=== PATIENT | female | born 1965 | race Caucasian/White ===

== ENCOUNTER 2018-04-12 13:45 | Inpatient (IN) ==
[2018-04-12] MEDS ORDERED: Ondansetron 4 MG/2 ML VIAL IVP ONE (13:54)
[2018-04-12] MEDS ORDERED: 0.9 % Sodium Chloride 1,000 ML IVC ONE ×2 (13:54→16:52)
[2018-04-12 14:34] LABS: Basophils # 0.1 K/mcL (0.0-0.2); Basophils % 0.5 %; Eosinophils % 0.3 %; Hematocrit 54.5 % (35.3-44.9); Hemoglobin 17.7 g/dL (11.5-15.4); Immature Granulocytes % 0.3 % (0-4); Lymphocytes # 1.3 K/mcL (0.6-4.6); Lymphocytes % 11.4 %; Mean Corpuscular HGB Conc 32.5 g/dL (31.6-35.5); Mean Corpuscular Hemoglobin 28.3 pg (28.0-33.3); Mean Corpuscular Volume 87.2 fL (83.0-100.0); Mean Platelet Volume 11.6 fL (9.4-12.4); Monocytes # 0.7 K/mcL (0.0-1.3); Monocytes % 6.3 %; Neutrophils # 9.3 K/mcL (1.6-8.9); Nucleated Red Blood Cells 0.2 /100 WBC (0); Platelet Count 346 K/mcL (140-400); Red Blood Count 6.25 M/mcL (3.82-4.97); Segmented Neutrophils % 81.2 %
--- NOTE | 2018-04-12 14:55 | Emergency Department Note ---
Disposition Clinical Impression: Severe sepsis, Gastroenteritis, Dehydration, ANDIE (acute kidney injury), Elevated troponin Disposition: Admitted As Inpatient Condition: Fair Time of Disposition: 17:20 General Adult HPI - General Chief complaint: ED Nausea/Vomiting/Diarrhea Stated complaint: flu like symptoms Time Seen by Provider: 04/12/18 13:46 Source: patient, EMS Mode of arrival: EMS Limitations: no limitations Nursing Notes Reviewed: Yes Vital Signs Reviewed: Yes - History of Present Illness HPI Narrative: Patient is a 53-year-old female past medical history of arthritis, hypertension, hypothyroid, gastric bypass and tubal ligation presents to the emergency department for evaluation of nausea, vomiting, and diarrhea that has been going on for the past 3 days. Patient states that her symptoms started out as nausea and vomiting that is resolved today and she continues to have diarrhea today which started approximately 2 days ago. States she had some episodes was streak s of red blood in the diarrhea. States she has felt feverish. Patient was brought in by squad from home. Pain Scale: 5 - Related Data Home Medications Medication Instructions Recorded Confirmed RX: Cholecalciferol (D-3) [Vitamin 5,000 unit PO DAILY 10/31/16 04/12/18 D] RX: Gabapentin [Neurontin] 600 mg PO TID 10/31/16 04/12/18 RX: Levothyroxine Sodium [Levoxyl] 75 mcg PO DAILY 10/31/16 04/12/18 RX: Lisinopril [Zestril] 5 mg PO DAILY 10/31/16 04/12/18 Esomeprazole Magnesium [Nexium] 20 mg PO DAILY 04/12/18 04/13/18 Hydrocodone/Acetaminophen [[place] 1 each PO Q6H PRN 04/12/18 04/12/18 5-325 Tablet] RX: Hydroxychloroquine [Plaquenuil] 200 mg PO BID 04/12/18 04/13/18 Albuterol Sulfate [Albuterol 2 puff IH QID PRN 04/13/18 04/13/18 Inhaler] Butalbit/Acetamin/Caff/Codeine 2 each PO QID PRN 04/13/18 04/13/18 [Jgocok-Ktwv-Pquwkncduyw-Codein] Montelukast [Singulair] 10 mg PO HS 04/13/18 04/13/18 Multivit-Min/Iron/Folic Acid/K 1 each PO DAILY 04/13/18 04/13/18 [Adults Multivitamin Tablet] Norgestimate-Ethinyl Estradiol 1 each PO DAILY 04/13/18 04/13/18 [Tri-Sprintec Tablet] Potassium Chloride [K-Tab ER] 10 meq PO DAILY 04/13/18 04/13/18 metFORMIN [Glucophage] 500 mg PO BIDWM 04/13/18 04/13/18 predniSONE [PredniSONE] 40 mg PO DAILY 04/13/18 04/13/18 Allergies Allergy/AdvReac Type Severity Reaction Status Date / Time topiramate [From Topamax] Allergy Itching Verified 01/08/18 08:42 morphine AdvReac See Verified 06/18/17 11:06 Comments tramadol AdvReac Nausea Verified 06/18/17 11:06 All systems ED: reviewed and negative except as stated. Review of Systems: As Per HPI Constitutional: Reports: fever, chills Cardiovascular: Denies: chest pain, palpitations, dyspnea on exertion, edema, syncope, paroxysmal nocturnal dyspnea Respiratory: Denies: cough, dyspnea, wheezes Gastrointestinal: Reports: nausea, vomiting, diarrhea, hematochezia. Denies: abdominal pain, constipation, hematemesis, melena Genitourinary: Reports: frequency. Denies: urgency, dysuria, hematuria Musculoskeletal: Denies: back pain, neck pain Integumentary: Denies: rash Neurological: Denies: headache, weakness, numbness, paresthesias, confusion, abnormal gait, vertigo Past Medical History - Past Medical History Attestation: Yes The following information was validated with the patient. Medical history: Reports: arthritis, hypertension, thyroid disease Surgical history: Reports: cholecystectomy, other, bariatric surgery Psychiatric history: Reports: no psych history - Social History Smoking Status: Never smoker Smokeless Tobacco Status: No Alcohol use: Reports: rarely Drug use: Reports: none Physical Exam - General Limitations: no limitations General appearance: alert, in distress (Diaphoretic and tachycardic. ) - Head Head exam: atraumatic, normocephalic, normal inspection - Eye Eye exam: Present: normal appearance, PERRL, EOMI - ENT ENT exam: normal exam, mucous membranes dry - Neck Neck exam: Present: normal inspection, full ROM, trachea midline - Chest Chest inspection: Present: normal inspection, symmetric chest wall rise. Absent: tenderness - Respiratory Respiratory exam: Present: normal lung sounds bilaterally. Absent: respiratory distress, wheezes, stridor, accessory muscle use, prolonged expiratory phase - Cardiovascular Cardiovascular exam: Present: tachycardia, normal heart sounds, +S1, +S2 - Abdominal Exam Abdominal exam: Present: soft, Non-Tender, normal bowel sounds - Extremities Exam Extremities exam: Present: normal inspection, full ROM, normal capillary refill. Absent: tenderness, pedal edema - Back Exam Back exam: Present: normal inspection, full ROM. Absent: tenderness, CVA tenderness (R), CVA tenderness (L) - Neurological Exam Neurological exam: Present: alert, oriented X3 - Psychiatric Psychiatric exam: Present: normal affect, normal mood - Skin Skin exam: Present: warm, intact, normal color, diaphoresis Course Course Narrative: Patient presents for evaluation of nausea, vomiting and diarrhea with reports of some streaking of blood in her diarrhea this morning. She has have a history of gastric bypass. She denies any chest pain, shortness of breath or abdominal pain. States that she has been trying to manage her illness at home. Given pat parveen's symptoms at this time she is meeting sepsis criteria with possible source GI tract. She does mention urinary frequency so is concern for urosepsis. - Reevaluation(s) Reevaluation #1: Lactic elevated. 3000ml additional bolus ordered, patient already received 1L. No obvious source of infection at this time, consider gastroenteritis. Time: 14:54 Reevaluation #2: Patient continues to receive fluids. She will have a 4 hour repeat lactate drawn. She continues to perfuse well with a normal blood pressure. Her heart rate is improved to the 130s. Her troponin is elevated. We discussed potential causes of troponin elevation. EKG is nonischemic. Discussed considering a CTA of the chest to evaluate for PE however patient is not complaining of any respiratory or chest complaints and is no hypoxia. The patient was ordered vancomycin and Zosyn for broad coverage unknown source of infection at this time. She is also ordered a 4 L bolus. Time: 16:22 Reevaluation #3: Patient with placement of a central line without complications please refer to procedure note. Central line was placed due to difficulty obtaining peripheral IV access given the patient's small veins. Her blood pressure has been labile as a map greater than 65. Her heart rate has improved. She is on her fourth liter of fluids. Her repeat troponin has trended downwards to 0.2 and her lactic is not 2.0. Overall patient appears to be improving as far as her labs. Postprocedural x-ray showed no pneumothorax and appropriate placement of the central line. Time: 21:22 Vital Signs Temperature 97.6 F 04/12/18 13:48 Pulse Rate 146 04/12/18 13:48 Respiratory Rate 19 04/12/18 13:48 Blood Pressure 103/64 04/12/18 13:48 O2 Sat by Pulse Oximetry 100 04/12/18 13:48 Temperature 98.7 F 04/13/18 11:23 Pulse Rate 102 04/13/18 11:23 Respiratory Rate 18 04/13/18 11:23 Blood Pressure 111/49 04/13/18 11:23 O2 Sat by Pulse Oximetry 98 04/13/18 11:23 Oxygen Delivery Oxygen Delivery Room Air Procedures - Central Line Placement Right IJ Central Line Inserted*: Yes Central Line Catheter Replacement*: No Central Line Insertion: elective Consent Obtained: written consent Procedural Pause: verify patient name and date of , timeout performed per policy, mart and assess the site, assemble equipment and verify supplies, perform hand hygiene Patient Placed on Monitor/Pulse Ox: Yes During the Procedure: clinician is wearing sterile gloves, cap, mask,& gown during insertion, sterile field and sterile technique are maintained, patient's face is covered with drape or mask and wearing a cap, everyone in room is wearing a mask Central Line Prep: Chlorhexidine scrub, sterile drapes applied Prep the Procedure Site: apply chloraprep to the skin using a back and forth scrubbing motion, apply chloraprep for 30 seconds (upper body), 1-2 min (femoral sites), allow prep to dry, drape the patient with a full body drape Local Anesthetic: lidocaine 1% Amount of anesthesia used (mL): 3 Ultrasound Used for Placement: Yes Central Line Lumen Inserted: triple Post Procedure: sutured in place, good blood return, all ports aspirated, flushed, capped, sterile dressing applied, guide wire removed and visualized, dressing is dated Post Procedure X-Ray: tip of catheter in good position, no pneumothorax seen Patient Tolerated Procedure: well, no complications Complications: none Name of Clinician Inserting Central Line: Dr. Bateman under the supervision of Dr. Montiel Clinician Assisting/Completing Checklist: Dr. Montiel Date: 04/12/18 Time: 21:20 Medical Decision Making - Medical Records Medical records reviewed: Yes I reviewed the patient's medical records. - Lab Data Lab results reviewed: Yes I reviewed the patient's lab results. Result diagrams: 04/13/18 07:50 04/13/18 03:50 Lab Results 04/12/18 04/12/18 04/12/18 Range/Units 14:07 14:07 14:07 WBC 11.5 H (4.3-11.1) K/mcL RBC 6.25 H (3.82-4.97) M/mcL Hgb 17.7 H (11.5-15.4) g/dL Hct 54.5 H (35.3-44.9) % MCV 87.2 (83.0-100.0) fL MCH 28.3 (28.0-33.3) pg MCHC 32.5 (31.6-35.5) g/dL RDW 15.0 H (11.5-14.5) % Plt Count 346 (140-400) K/mcL MPV 11.6 (9.4-12.4) fL Immature Gran % 0.3 (0-4) % Seg Neutrophils % 81.2 % Lymphocytes % 11.4 % Monocytes % 6.3 % Eosinophils % 0.3 % Basophils % 0.5 % Neutrophils # 9.3 H (1.6-8.9) K/mcL Lymphocytes # 1.3 (0.6-4.6) K/mcL Monocytes # 0.7 (0.0-1.3) K/mcL Eosinophils # 0.0 (0.0-0.6) K/mcL Basophils # 0.1 (0.0-0.2) K/mcL Nucleated RBCs/100 WBC 0.2 H (0) /100 WBC Sodium 131 L (136-145) mEq/L Potassium 5.0 (3.5-5.1) mEq/L Chloride 97 L (98-107) mEq/L Carbon Dioxide 12 L (23-29) mEq/L BUN 28 H (6-20) mg/dL Creatinine 2.68 H (0.60-1.20) mg/dL Est GFR ( Amer) 23 L (> 60) Est GFR (Non-Af Amer) 19 L (> 60) BUN/Creatinine Ratio 10 (6-26) Glucose 189 H (70-105) mg/dL Calculated Osmolality 283 (280-300) Lactic Acid (0.5-2.2) mmol/L Calcium 8.1 L (8.6-10.3) mg/dL Phosphorus 6.2 H Cancelled (2.7-4.5) mg/dL Magnesium 1.5 L Cancelled (1.6-2.6) mg/dL Total Bilirubin 0.5 Cancelled (0.3-1.0) mg/dL Direct Bilirubin 0.1 Cancelled (0.0-0.2) mg/dL Indirect Bilirubin 0.4 Cancelled (0.0-1.2) mg/dL AST 24 Cancelled (13-39) Units/L ALT 21 Cancelled (7-52) Units/L Alkaline Phosphatase 38 Cancelled (34-104) Units/L Creatine Kinase (30-223) Units/L Troponin I 0.52 H* (< 0.04) ng/mL Serum Total Protein 6.5 Cancelled (6.4-8.9) g/dL Albumin 3.7 Cancelled (3.5-5.7) g/dL Globulin 2.8 Cancelled (2.4-3.5) g/dL Albumin/Globulin Ratio 1.3 Cancelled (1.1-2.2) Lipase 13 (11-82) Units/L Random Cortisol mcg/dl Urine Color (Yellow) Urine Clarity (Clear) Urine pH (5.0-8.0) pH Units Ur Specific [place] (1.010-1.025) Urine Protein (Neg-Trace) mg/dL Urine Glucose (UA) (Normal) mg/dL Urine Ketones (Negative) mg/dL Urine Blood (Negative) Urine Nitrite (Negative) Urine Bilirubin (Negative) Urine Urobilinogen (Normal) mg/dL Ur Leukocyte Esterase (Negative) Urine Microscopic RBC (0-3) per hpf Urine Microscopic WBC (0-3) per hpf Ur Squamous Epith Cells (None-Few) per lpf Amorphous Sediment (Few) Urine Bacteria (None-Few) per hpf Hyaline Casts (None-Few) per lpf Ur Culture Indicated? (NO) 04/12/18 04/12/18 04/12/18 Range/Units 14:07 15:10 16:55 WBC (4.3-11.1) K/mcL RBC (3.82-4.97) M/mcL Hgb (11.5-15.4) g/dL Hct (35.3-44.9) % MCV (83.0-100.0) fL MCH (28.0-33.3) pg MCHC (31.6-35.5) g/dL RDW (11.5-14.5) % Plt Count (140-400) K/mcL MPV (9.4-12.4) fL Immature Gran % (0-4) % Seg Neutrophils % % Lymphocytes % % Monocytes % % Eosinophils % % Basophils % % Neutrophils # (1.6-8.9) K/mcL Lymphocytes # (0.6-4.6) K/mcL Monocytes # (0.0-1.3) K/mcL Eosinophils # (0.0-0.6) K/mcL Basophils # (0.0-0.2) K/mcL Nucleated RBCs/100 WBC (0) /100 WBC Sodium (136-145) mEq/L Potassium (3.5-5.1) mEq/L Chloride (98-107) mEq/L Carbon Dioxide (23-29) mEq/L BUN (6-20) mg/dL Creatinine (0.60-1.20) mg/dL Est GFR ( Amer) (> 60) Est GFR (Non-Af Amer) (> 60) BUN/Creatinine Ratio (6-26) Glucose (70-105) mg/dL Calculated Osmolality (280-300) Lactic Acid 5.3 H* (0.5-2.2) mmol/L Calcium (8.6-10.3) mg/dL Phosphorus (2.7-4.5) mg/dL Magnesium (1.6-2.6) mg/dL Total Bilirubin (0.3-1.0) mg/dL Direct Bilirubin (0.0-0.2) mg/dL Indirect Bilirubin (0.0-1.2) mg/dL AST (13-39) Units/L ALT (7-52) Units/L Alkaline Phosphatase (34-104) Units/L Creatine Kinase 96 (30-223) Units/L Troponin I (< 0.04) ng/mL Serum Total Protein (6.4-8.9) g/dL Albumin (3.5-5.7) g/dL Globulin (2.4-3.5) g/dL Albumin/Globulin Ratio (1.1-2.2) Lipase (11-82) Units/L Random Cortisol 21.9 mcg/dl Urine Color Dark Yellow (Yellow) Urine Clarity Turbid A (Clear) Urine pH 5.0 (5.0-8.0) pH Units Ur Specific [place] 1.025 (1.010-1.025) Urine Protein 30 H (Neg-Trace) mg/dL Urine Glucose (UA) Normal (Normal) mg/dL Urine Ketones Trace H (Negative) mg/dL Urine Blood Negative (Negative) Urine Nitrite Negative (Negative) Urine Bilirubin Large H (Negative) Urine Urobilinogen Normal (Normal) mg/dL Ur Leukocyte Esterase Small H (Negative) Urine Microscopic RBC 3-5 H (0-3) per hpf Urine Microscopic WBC 3-5 H (0-3) per hpf Ur Squamous Epith Cells Many H (None-Few) per lpf Amorphous Sediment Many H (Few) Urine Bacteria None Seen (None-Few) per hpf Hyaline Casts Few (None-Few) per lpf Ur Culture Indicated? NO. A (NO) 04/12/18 04/12/18 Range/Units 19:54 19:54 WBC (4.3-11.1) K/mcL RBC (3.82-4.97) M/mcL Hgb (11.5-15.4) g/dL Hct (35.3-44.9) % MCV (83.0-100.0) fL MCH (28.0-33.3) pg MCHC (31.6-35.5) g/dL RDW (11.5-14.5) % Plt Count (140-400) K/mcL MPV (9.4-12.4) fL Immature Gran % (0-4) % Seg Neutrophils % % Lymphocytes % % Monocytes % % Eosinophils % % Basophils % % Neutrophils # (1.6-8.9) K/mcL Lymphocytes # (0.6-4.6) K/mcL Monocytes # (0.0-1.3) K/mcL Eosinophils # (0.0-0.6) K/mcL Basophils # (0.0-0.2) K/mcL Nucleated RBCs/100 WBC (0) /100 WBC Sodium (136-145) mEq/L Potassium (3.5-5.1) mEq/L Chloride (98-107) mEq/L Carbon Dioxide (23-29) mEq/L BUN (6-20) mg/dL Creatinine (0.60-1.20) mg/dL Est GFR ( Amer) (> 60) Est GFR (Non-Af Amer) (> 60) BUN/Creatinine Ratio (6-26) Glucose (70-105) mg/dL Calculated Osmolality (280-300) Lactic Acid 2.0 (0.5-2.2) mmol/L Calcium (8.6-10.3) mg/dL Phosphorus (2.7-4.5) mg/dL Magnesium (1.6-2.6) mg/dL Total Bilirubin (0.3-1.0) mg/dL Direct Bilirubin (0.0-0.2) mg/dL Indirect Bilirubin (0.0-1.2) mg/dL AST (13-39) Units/L ALT (7-52) Units/L Alkaline Phosphatase (34-104) Units/L Creatine Kinase (30-223) Units/L Troponin I 0.26 H* (< 0.04) ng/mL Serum Total Protein (6.4-8.9) g/dL Albumin (3.5-5.7) g/dL Globulin (2.4-3.5) g/dL Albumin/Globulin Ratio (1.1-2.2) Lipase (11-82) Units/L Random Cortisol mcg/dl Urine Color (Yellow) Urine Clarity (Clear) Urine pH (5.0-8.0) pH Units Ur Specific [place] (1.010-1.025) Urine Protein (Neg-Trace) mg/dL Urine Glucose (UA) (Normal) mg/dL Urine Ketones (Negative) mg/dL Urine Blood (Negative) Urine Nitrite (Negative) Urine Bilirubin (Negative) Urine Urobilinogen (Normal) mg/dL Ur Leukocyte Esterase (Negative) Urine Microscopic RBC (0-3) per hpf Urine Microscopic WBC (0-3) per hpf Ur Squamous Epith Cells (None-Few) per lpf Amorphous Sediment (Few) Urine Bacteria (None-Few) per hpf Hyaline Casts (None-Few) per lpf Ur Culture Indicated? (NO) - Radiology Data Radiology results reviewed: Yes I reviewed the patient's radiology results. Chest X-Ray 04/12/18 13:56 IMPRESSION: 1. No active pulmonary disease. D/ / Aurelio Walter MD / Aurelio Walter MD Interpreting Provider: Aurelio Walter MD - EKG Data EKG #1 EKG attestation: Yes I reviewed and interpreted this EKG. EKG results narrative: EKG done at 15:10 shows sinus tachycardia rate 134 bpm. Normal axis. Intervals within normal limits. No signs of ischemia. Attestation Statement - Attestation Attestation: Resident Attestation: I examined this patient and my medical decision making was reviewed with the Resident Physician. I agree with the documented findings, disposition and treatment plan as described except to the extent set forth below. We independently had [id number] contact with the patient. Patient presents to emergency department with complaints of abdominal pain, cony rrhea, nausea. Patient will undergo further evaluation with blood work as well as CT scan. patient looks markedly better than her vital signs. Conversational and pleasant despite heart rate in the 140s. Abdomen with mild generalized tenderness without rebound or guarding. patient's elevated lactic acid. Continue to give fluids. Blood cultures and empiric antibiotics will be started. No specific etiology on CT scan other than possible developing ileus versus small bowel obstruction. Central line was placed secondary to labile blood pressures systolically of 80 and 90. Central line was placed by Dr. Bateman. I was present throughout the entirety of the procedure. Sepsis Reassessment Note - Evaluation Current Stage of Sepsis: severe sepsis Possible Source of Sepsis: GI tract/intra-abdominal - Focused Exam Date of Encounter: 04/12/18 Time of Encounter: 19:30 Respiratory Exam: Present: CTA bilaterally Cardiovascular Exam: Present: tachycardia, S1, S2 Capillary Refill: < 2 seconds Peripheral Pulse Strength: 3+ normal Peripheral Pulse Location: Pedal Skin Exam: normal turgor
[2018-04-12 15:05] LABS: Calcium 8.1 mg/dL (8.6-10.3)
[2018-04-12] MEDS ORDERED: Aspirin 81 MG TAB.CHEW PO STA (15:20)
[2018-04-12] MEDS ORDERED: Isovue-370 500 ML BOTTLE IVP ONE (15:24)
[2018-04-12] MEDS ORDERED: Hydrocortisone Sodium Succ 100 MG/2 ML VIAL IVP ONE (15:25)
[2018-04-12] MEDS: 0.9 % Sodium Chloride 1,000 ML IVC SCH ×5 (15:30→22:36)
[2018-04-12 15:42] LABS: Albumin 3.7 g/dL (3.5-5.7); Albumin/Globulin Ratio 1.3 (1.1-2.2); Bilirubin,Direct 0.1 mg/dL (0.0-0.2); Bilirubin,Indirect 0.4 mg/dL (0.0-1.2); Bilirubin,Total 0.5 mg/dL (0.3-1.0); Globulin 2.8 g/dL (2.4-3.5); Magnesium 1.5 mg/dL (1.6-2.6); Phosphorous 6.2 mg/dL (2.7-4.5); Total Protein 6.5 g/dL (6.4-8.9)
[2018-04-12] MEDS ORDERED: Piperacillin/Tazobactam 3.375 GM in Water for inj. (sterile) 20 ML 20 ML IVP ONE (16:10)
[2018-04-12 17:06] LABS: Bilirubin,Urine Large (Negative); Blood,Urine Negative (Negative); Clarity,Urine Turbid (Clear); Color,Urine Dark Yellow (Yellow); Glucose,Urine (UA) Normal (Normal); Ketones,Urine Trace mg/dL (Negative); Leukocyte Esterase,Urine Small (Negative); Nitrite,Urine Negative (Negative); Protein,Urine 30 mg/dL (Neg-Trace); Specific Gravity,Urine 1.025 (1.010-1.025); Urobilinogen,Urine Normal (Normal)
[2018-04-12 17:08] LABS: Bacteria,Urine None Seen per hpf (None-Few); Squamous Epithelial Cell,Urine Many per lpf (None-Few)
--- NOTE | 2018-04-12 17:27 | Internal Med History&Physical ---
Addendum entered and electronically signed by Jose Stone DO 04/12/18 19:15: A/P Elevated trop - 0.53. Likely secondary to demand ischemia in setting of severe sepsis and hypovolemia. Patient denies chest pains or TORRES. EKG sinus without evidence of ischemic changes. Trend trops, repeat EKG in am. If continues to elevate, will workup cardiac causes with Echocardiogram. Original Note: <Jose Stone - Last Filed: 04/12/18 18:24> Date of Encounter: 04/12/18 Time of Encounter: 18:00 Internal Medicine - H&P: HPI Chief complaint: Nausea, vomiting and diarrhea Admitted From: Emergency Dept Plans for Post Hospital Care: Home History of present illness: Ms. Roberson is a 53 year old female with history of arthritis, hypertension, hypothyroidism, gastric bypass, dermatomyositis on 1 year taper of prednisone and Plaquenil who presents to the ED with 3 day history of nausea, vomiting and diarrhea. 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 She states that approximately 3 days ago she started developing nausea and vomiting, which was quickly followed by diarrhea which has been going on consistently since. She says the nausea and vomiting has stopped as of yesterday, however the diarrhea has yet to seize. This is not associated with any significant abdominal pain, however she has noted some subjective fevers, chills and sweats. Nothing like this is happening in the past. She does have exposure to illness, however she cannot think of anyone who has had similar illnesses in her recent exposures. She denies chest pains, shortness of breath, cough with sputum production. She also denies any urinary symptoms. She has had some streaks of blood in her stool but nothing significant. She does admit to feeling significantly weak generally, which she says has accumulated over the past couple of days. In the emergency department, the patient did have a set of labs which demonstrated a significant metabolic acidosis with high anion gap of 22, severe ANDIE with serum creatinine 2.68. She did have an elevated WBC at 11.5. Lactic acid was 5.3, troponin 0.52. She had no abdominal CT which demonstrated status post gastric bypass with mild dilatation of multiple proximal and mid small bowel loops though no definite transition point was identified. Chest x-ray was nonsignificant. The patient was significantly tachycardic with heart rate greater than 130, soft blood pressures. Due to the concern for severe sepsis, the patient did receive 3 L of saline and broad-spectrum antibiotics. She will be admitted to the hospitalist service for further workup and management. Past Med Surg Social Fam HX - Past Medical History Medical history: arthritis, hypertension, thyroid disease Additional medical history: hypothyroidism. chronic back pain Psychiatric history: no psych history - Past Surgical History Surgical History: cholecystectomy, other, bariatric surgery Additional surgical history: gastric bypass. tubal ligation. adenoidectomy - Social History Smoking Status: Never smoker Smokeless Tobacco Status: No Alcohol use: rarely Drug use: none Internal Medicine - H&P: Meds Cholecalciferol (D-3) [Vitamin D] 5,000 unit PO DAILY 10/31/16 [History] Gabapentin [Neurontin] 600 mg PO TID 10/31/16 [History] Levothyroxine Sodium [Levoxyl] 75 mcg PO DAILY 10/31/16 [History] Lisinopril [Zestril] 5 mg PO DAILY 10/31/16 [History] Esomeprazole Magnesium [Nexium] 20 mg PO DAILY 04/12/18 [History] Hydrocodone/Acetaminophen [[place] 5-325 Tablet] 1 each PO Q6H PRN 04/12/18 [History] Hydroxychloroquine [Plaquenuil] 200 mg PO BID 04/12/18 [History] Albuterol Sulfate [Albuterol Inhaler] 2 puff IH QID PRN 04/13/18 [History] Butalbit/Acetamin/Caff/Codeine [Kbcimt-Uczk-Zkonszkacof-Codein] 2 each PO QID PRN 04/13/18 [History] Montelukast [Singulair] 10 mg PO HS 04/13/18 [History] Multivit-Min/Iron/Folic Acid/K [Adults Multivitamin Tablet] 1 each PO DAILY 04/13/18 [History] Norgestimate-Ethinyl Estradiol [Tri-Sprintec Tablet] 1 each PO DAILY 04/13/18 [History] Potassium Chloride [K-Tab ER] 10 meq PO DAILY 04/13/18 [History] metFORMIN [Glucophage] 500 mg PO BIDWM 04/13/18 [History] predniSONE [PredniSONE] 40 mg PO DAILY 04/13/18 [History] Allergy/AdvReac Type Severity Reaction Status Date / Time topiramate [From Topamax] Allergy Itching Verified 01/08/18 08:42 morphine AdvReac See Verified 06/18/17 11:06 Comments tramadol AdvReac Nausea Verified 06/18/17 11:06 All Systems PM: A 10-system review of systems was performed and is negative for pertinent findings except as documented above in the HPI. Review of systems: Constitutional: Admits to subjective fevers, chills, generalized fatigue. Denies weight loss Head/Neck: Denies TSAI, neck stiffness EENT: Denies vision changes/blurriness, rhinorrhea, congestion, sore throat CVS: Denies chest pain, palpitations, TORRES, orthopnea, edema, PND Pulm: Denies SOB, cough, sputum, hemoptysis, wheezing GI: Denies abdominal pain, constipation, melena. Admits to nausea, nonbloody nonbilious vomiting, significant diarrhea with occasional streaks of hematochezia. : Denies dysuria, increased frequency, urgency, hematuria Heme: Denies ease of bleeding or bruising MSK: Denies joint pain, limited ROM. Denies significant muscle weakness or wasting above baseline Skin: Denies rashes, ulcers, color changes Neuro: Denies TSAI, paresthesias, focal deficits, ataxia - Constitutional Vitals: Temp Pulse Resp BP Pulse Ox 97.6 F 128 24 107/77 99 04/12/18 13:48 04/12/18 17:00 04/12/18 17:00 04/12/18 17:00 04/12/18 17:00 Exam: Gen: Vitals noted. No acute distress. Room has malodorous smell upon entry suspicious for infectious diarrhea Eyes: anicteric sclerae, moist conjunctivae; no lid-lag; Pupils equal and re active to light HENT: Atraumatic; oropharynx clear with moist mucous membranes and no mucosal ulcerations; normal hard and soft palate Neck: Trachea midline; supple, no thyromegaly or lymphadenopathy Cardiac: RRR however tachycardic, no murmur, +S1/S2 Pulmonary: CTA bilaterally, no wheezes, rales or rhonchi, equal chest expansion Abdomen: soft, minimally tender to palpation, no guarding. No masses or hepatosplenomegaly MSK: ROM intact, no joint swelling noted Extremities: no BLE edema, nontender calf, no cyanosis or clubbing Skin: Normal temperature, turgor and texture; no rash, ulcers or subcutaneous nodules Neuro: moves all extremities, no focal deficits. Psych: Appropriate mood and behavior. A&Ox3 Internal Med - H&P Results - Labs CBC & Chem 7: 04/12/18 14:07 04/12/18 14:07 Labs: Short CBC 04/12/18 Range/Units 14:07 WBC 11.5 H (4.3-11.1) K/mcL Hgb 17.7 H (11.5-15.4) g/dL Hct 54.5 H (35.3-44.9) % Plt Count 346 (140-400) K/mcL Neutrophils # 9.3 H (1.6-8.9) K/mcL BMP 04/12/18 14:07 Sodium 131 L Potassium 5.0 Chloride 97 L Carbon Dioxide 12 L BUN 28 H Creatinine 2.68 H Glucose 189 H Calcium 8.1 L Cardiac Enzymes 04/12/18 Range/Units 14:07 Troponin I 0.52 H* (< 0.04) ng/mL Liver Function 04/12/18 04/12/18 Range/Units 14:07 14:07 Total Bilirubin 0.5 Cancelled (0.3-1.0) mg/dL Direct Bilirubin 0.1 Cancelled (0.0-0.2) mg/dL AST 24 Cancelled (13-39) Units/L ALT 21 Cancelled (7-52) Units/L Alkaline Phosphatase 38 Cancelled (34-104) Units/L Albumin 3.7 Cancelled (3.5-5.7) g/dL Urine 04/12/18 Range/Units 16:55 Urine Color Dark Yellow (Yellow) Urine Clarity Turbid A (Clear) Urine pH 5.0 (5.0-8.0) pH Units Ur Specific [place] 1.025 (1.010-1.025) Urine Protein 30 H (Neg-Trace) mg/dL Urine Glucose (UA) Normal (Normal) mg/dL - Impressions ITS Impressions Chest X-Ray 04/12/18 13:56 IMPRESSION: 1. No active pulmonary disease. D/ / Aurelio Walter MD / Aurelio Walter MD Interpreting Provider: Aurelio Walter MD Abdomen/Pelvis CT 04/12/18 15:30 IMPRESSION: 1. Patient status post gastric bypass with mild dilatation of multiple proximal and mid small bowel loops, though no definite transition point is identified. These findings may suggest a mild small bowel ileus or possibly a developing small bowel obstruction. Clinical correlation is advised. There is no evidence of pneumatosis, perforation, or free air. 2. Patient status post cholecystectomy. D/ / 04/12/2018 16:42:27 Bro Alvarado MD / [facility] Interpreting Provider: Bro Alvarado MD - Assessment and plan (1) Severe sepsis Current Visit: Yes Status: Acute Assessment and plan: Severe sepsis secondary to likely infectious diarrhea SIRS include HR 146, RR 24, Suspected etiology infectious diarrhea Patient does present with evidence of lactic acidosis 5.3, evidence of end organ dysfunction (ANDIE and elevated Trop) CT Abd/Pelvis shows dilated loops of small bowel without obvious obstruction. CXR is negative. Received 3L NS in the ED with some drop in HR, Got Vancomycin and Zosyn IV. Blood cultures pending. UA Negative We will check GI Stool Culture Start IV Zosyn, PO Vanc Continue NS @125mL/hr Repeat lactic acid q4h until normal Repeat BMP @ 2400 (2) Infectious diarrhea in adult patient Current Visit: Yes Status: Acute Assessment and plan: Suspected infectious diarrhea, possibly C. 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 She does have a history of dermatomyositis and has been on long-term prednisone taper currently at 10 mg over the course of year She has had repetitive intractable diarrhea which has resulted in severe sepsis, severe volume depletion We will send for GI panel, start Zosyn and PO Vanc empirically De-escalate pending cultures Contact precautions (3) High anion gap metabolic acidosis Current Visit: Yes Status: Acute Assessment and plan: High anion gap metabolic acidosis, likely secondary to lactic acidosis in the setting of severe sepsis Patient presents with an anion gap of 22 and a lactic acid of 5.3 Suspect that this is primarily secondary to her current volume depletion and severe sepsis Additionally, there appears to be a non-anion gap metabolic acidosis component superimposed, likely secondary to diarrhea We will treat the patient aggressively with IV fluid resuscitation Trend BMPs every 4 hours (4) ANDIE (acute kidney injury) Current Visit: Yes Status: Acute Assessment and plan: Acute kidney injury in the setting of severe hypovolemia Serum creatinine 2.68, estimated GFR 19. Baseline greater than 60 This is likely prerenal due to diarrhea and severe hypovolemia, however there may be an ATN component in the setting of severe sepsis as well We will get a retroperitoneal ultrasound, urine studies. Strict I/Os. Renal Diet Continue IVF w/ NS @ 125mL/hr Check repeat BMP in a.m. Consider nephrology consult (5) Gastroenteritis Current Visit: Yes Status: Acute Assessment and plan: Suspected infectious GI Panel, as above (6) Dermatomyositis Current Visit: Yes Status: Chronic Assessment and plan: History of dermatomyositis, on plaquenil and prednisone Will continue plaquenil, give stress dose steroids No acute exacerbation (7) Hypomagnesemia Current Visit: Yes Status: Acute Assessment and plan: Replete with 2g IV Magnesium (8) Current chronic use of systemic steroids Current Visit: Yes Status: Acute Assessment and plan: Patient has been on long-term prednisone taper and is currently at 10 mg a day Given her severe sepsis, we will give her stress dose steroids 100 mg Solu-Cortef TID - Time Spent With Patient Total time spent is greater than 50% in coordination of care (as documented) at patient's floor/unit and/or counseling patient: <Judith Subramanian - Last Filed: 04/14/18 07:29> Date of Encounter: 04/14/18 Internal Medicine - H&P: HPI History of present illness: Ms. Roberson is a 53 year old female Past Med Surg Social Fam HX - Family History Father Living Status: Still Living Mother Living Status: Age at : 68 Cause of : Stroke Hx Family Cardiac Disorders: Yes (Heart attack age 56) Hx Family Cancer: Yes (Uterine) All Systems PM: A 10-system review of systems was performed and is negative for pertinent findings except as documented above in the HPI. - Constitutional Vitals: Temp Pulse Resp BP Pulse Ox 98.0 F 90 14 132/80 96 04/14/18 03:48 04/14/18 03:48 04/14/18 03:48 04/14/18 03:48 04/14/18 03:48 Internal Med - H&P Results - Labs CBC & Chem 7: 04/13/18 07:50 04/14/18 03:40 Labs: Short CBC 04/13/18 Range/Units 07:50 WBC 8.7 (4.3-11.1) K/mcL Hgb 11.6 D (11.5-15.4) g/dL Hct 35.4 (35.3-44.9) % Plt Count 254 (140-400) K/mcL Neutrophils # 7.6 (1.6-8.9) K/mcL BMP 04/14/18 03:40 Sodium 137 Potassium 3.3 L Chloride 110 H Carbon Dioxide 22 L BUN 5 L Creatinine 0.42 L Glucose 216 H Calcium 7.0 L - Impressions ITS Impressions Chest X-Ray 04/12/18 13:56 IMPRESSION: 1. No active pulmonary disease. D/ / Aurelio Walter MD / Aurelio Walter MD Interpreting Provider: Aurelio Walter MD Abdomen/Pelvis CT 04/12/18 15:30 IMPRESSION: 1. Patient status post gastric bypass with mild dilatation of multiple proximal and mid small bowel loops, though no definite transition point is identified. These findings may suggest a mild small bowel ileus or possibly a developing small bowel obstruction. Clinical correlation is advised. There is no evidence of pneumatosis, perforation, or free air. 2. Patient status post cholecystectomy. D/ / 04/12/2018 16:42:27 Bro Alvarado MD / [facility] Interpreting Provider: Bro Alvarado MD Chest X-Ray 04/12/18 21:07 IMPRESSION: No acute process. Right jugular central venous line in place terminating near the junction of the SVC and the right atrium D/ / Jose Albrecht MD / Jose Albrecht MD Interpreting Provider: Jose Albrecht MD - Assessment and plan (1) Severe sepsis Current Visit: Yes Status: Acute (2) Gastroenteritis Current Visit: Yes Status: Acute (3) ANDIE (acute kidney injury) Current Visit: Yes Status: Acute (4) Infectious diarrhea in adult patient Current Visit: Yes Status: Acute (5) Dermatomyositis Current Visit: Yes Status: Chronic (6) High anion gap metabolic acidosis Current Visit: Yes Status: Resolved (7) Hypomagnesemia Current Visit: Yes Status: Resolved (8) Current chronic use of systemic steroids Current Visit: Yes Status: Acute - Time Spent With Patient Total time spent is greater than 50% in coordination of care (as documented) at patient's floor/unit and/or counseling patient: - Attending Attestation I examined this patient and my medical decision-making was reviewed with the Resident Physician. I agree with the documented findings, disposition and treatment plan as described except to the extent set forth below.
[2018-04-12] MEDS ORDERED: Naloxone 0.4 MG/ML INJ IVP PRN (17:36)
[2018-04-12 18:05] LABS: Amorphous Sediment,Urine Many (Few); Hyaline Casts,Urine Few per lpf (None-Few)
[2018-04-12] MEDS ORDERED: Aminoglycoside Consult 1 EACH MC ONE (21:31)
[2018-04-12] MEDS: *HR* Heparin 5,000 UNIT/ML VIAL SQ SCH (22:49)
[2018-04-13] MEDS: Vancomycin Oral Soln 125 MG/2.5 ML UDC PO SCH ×2 (00:06→07:54)
[2018-04-13] MEDS: Hydrocortisone Sodium Succ 100 MG/2 ML VIAL IVP SCH ×2 (00:07→07:43)
[2018-04-13] MEDS: Piperacillin/Tazobactam 3.375 GM in 0.9 % Sodium Chloride Mini Bag 100 ML IVPB SCH ×4 (00:08→23:37)
[2018-04-13] MEDS ORDERED: Levalbuterol 1 PUFF INHALER IH PRN (00:58)
[2018-04-13] MEDS: Acetaminophen 325 MG TABLET PO PRN ×4 (01:33→20:19)
[2018-04-13 01:42] LABS: Calcium 6.1 mg/dL (8.6-10.3); Potassium 3.8 mEq/L (3.5-5.1)
[2018-04-13 01:43] LABS: Sodium, Urine 37.6 mEq/L
[2018-04-13 01:45] LABS: Protein/Creatinine Ratio,Urine 0.44 mg/mg (0.00-0.20)
[2018-04-13 02:19] LABS: Adenovirus F 40/41 PCR Not detected (Not detect); Astrovirus PCR Not detected (Not detect); C.difficile Toxin A/B Gene PCR Not detected (Not detect); Campylobacter by PCR Not detected (Not detect); Cryptosporidium by PCR Not detected (Not detect); Cyclospora cayetanensis PCR Not detected (Not detect); E. coli O157 by PCR Not detected (Not detect); Entamoeba histolytica PCR Not detected (Not detect); Enteroaggregative E.coli(EAEC) Not detected (Not detect); Enteropathogenic E.coli(EPEC) Not detected (Not detect); Enterotoxigenic E.coli (ETEC) Not detected (Not detect); Giardia lamblia PCR Not detected (Not detect); Norovirus GI/GII PCR DETECTED (Not detect); Plesiomonas shigelloides PCR Not detected (Not detect); Salmonella PCR Not detected (Not detect); Shig/EnteroinvasiveE coli EIEC Not detected (Not detect); Shigalike tox-prod E coli STEC Not detected (Not detect); Vibrio PCR Not detected (Not detect); Vibrio cholerae PCR Not detected (Not detect); Yersinia enterocolitica PCR Not detected (Not detect)
[2018-04-13 02:20] LABS: Rotavirus A PCR Not detected (Not detect); Sapovirus PCR Not detected (Not detect)
[2018-04-13 04:21] LABS: INR 1.1; Prothrombin Time 12.6 Seconds (9.4-12.1)
[2018-04-13 04:36] LABS: Alanine Aminotransferase 15 Units/L (7-52); Albumin 2.7 g/dL (3.5-5.7); Albumin/Globulin Ratio 1.3 (1.1-2.2); Alkaline Phosphatase 28 Units/L (34-104); Aspartate Amino Transferase 16 Units/L (13-39); BUN/Creatinine Ratio 19 (6-26); Bilirubin,Total 0.3 mg/dL (0.3-1.0); Blood Urea Nitrogen 19 mg/dL (6-20); Calcium 6.5 mg/dL (8.6-10.3); Carbon Dioxide 16 mEq/L (23-29); Chloride 111 mEq/L (98-107); Globulin 2.1 g/dL (2.4-3.5); Glucose 182 mg/dL (70-105); Magnesium 2.1 mg/dL (1.6-2.6); Osmolality,Calculated 287 (280-300); Phosphorous 2.6 mg/dL (2.7-4.5); Potassium 3.8 mEq/L (3.5-5.1); Sodium 135 mEq/L (136-145); Total Protein 4.8 g/dL (6.4-8.9); eGFR For Non-African Americans 60 (> 60)
[2018-04-13] MEDS: 0.9 % Sodium Chloride 1,000 ML IVC SCH (06:23)
[2018-04-13] MEDS: *HR* Heparin 5,000 UNIT/ML VIAL SQ SCH ×3 (06:23→22:10)
[2018-04-13] MEDS: Cholecalciferol (D-3) 1,000 UNIT TABLET PO SCH (07:43)
[2018-04-13 08:07] LABS: Basophils % 0.1 %; Hematocrit 35.4 % (35.3-44.9); Immature Granulocytes % 0.5 % (0-4); Lymphocytes # 0.6 K/mcL (0.6-4.6); Lymphocytes % 6.8 %; Mean Corpuscular HGB Conc 32.8 g/dL (31.6-35.5); Mean Corpuscular Hemoglobin 28.2 pg (28.0-33.3); Mean Corpuscular Volume 85.9 fL (83.0-100.0); Mean Platelet Volume 10.5 fL (9.4-12.4); Monocytes # 0.4 K/mcL (0.0-1.3); Monocytes % 4.4 %; Neutrophils # 7.6 K/mcL (1.6-8.9); Platelet Count 254 K/mcL (140-400); Red Blood Count 4.12 M/mcL (3.82-4.97); Red Cell Distribution Width 13.9 % (11.5-14.5); Segmented Neutrophils % 88.2 %
[2018-04-13 08:12] LABS: Hemoglobin 11.6 g/dL (11.5-15.4)
[2018-04-13 09:54] LABS: VBG Ionized Calcium 1.04 mmol/L (1.15-1.35)
--- NOTE | 2018-04-13 11:38 | Internal Med Progress Note ---
<JosefJaden Tracey - Last Filed: 04/13/18 18:07> Hospitalist Progress Note - Encounter Date of Encounter: 04/13/18 Time of Encounter: 09:35 - Subjective Interval History: Mrs. Roberson is a 53 year-old female with history of hypertension, hypothyroidism, gastric bypass, dermatomyositis on 1 year taper of prednisone and Plaquenil. She presented to the ED with nausea, vomiting, and diarrhea that began 3 days prior with some general weakness. She denied chest pain, SOB, cough, or urinary symptoms. 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 Labs on presentation indicated metabolic acidosis with high anion gap of 22, elevated WBC of 11.5, lactic acid 5.3, troponin 0.52. CXR was without significant findings. CT of the abdomen showed mild dilatation of multiple proximal and mid small bowel loops but no definite transition point, pneumatosis, perforation, free air. In the ED, she initially received 3L 0.9NS as well as Zosyn and IV Vancomycin given the concern for sepsis. Central line placed RIJ due to difficulty obtaining peripheral IV access from patient's small veins. On admission, aggressive IV hydration ~4L 0.9NS and broad spectrum antibiotics were continued. Followup labs improved with WBC 8.7, Lactic acid 0.8, troponin 0.16, BUN 19, Cr 0.98, AG of 8. GI Panel was positive for Norovirus. UA not significant for infection. Nasopharyngeal swab negative for flu. Blood cultures pending. Patient seen this am at bedside. She admits feeling markedly improved and denies any fever, chills, nausea, abdominal pain, or dysuria. The patient had one episode of diarrhea that was minimal in volume. She also endorses some mild myalgia which she attributes partially to her dermatomyositis. - Exam Vitals: Temp Pulse Resp BP Pulse Ox 98.7 F 102 18 111/49 98 04/13/18 11:23 04/13/18 11:23 04/13/18 11:23 04/13/18 11:23 04/13/18 11:23 Exam: Gen: Vitals noted. No acute distress. Eyes: anicteric sclerae, moist conjunctivae; no lid-lag; Pupils equal and reactive to light HENT: Atraumatic; oropharynx clear with moist mucous membranes and no mucosal ulcerations; normal hard and soft palate Neck: Trachea midline; supple, no thyromegaly or lymphadenopathy Cardiac: RRR, no murmur, +S1/S2 Pulmonary: CTA bilaterally, no wheezes, rales or rhonchi, equal chest expansion Abdomen: soft, no tenderness palpation, no guarding. No masses or hepatosplenomegaly MSK: ROM intact, no joint swelling noted Extremities: no BLE edema, nontender calf, no cyanosis or clubbing Skin: Normal temperature, turgor and texture; no rash, ulcers or subcutaneous nodules Neuro: moves all extremities, no focal deficits. Psych: Appropriate mood and behavior. A&Ox3 - Assessment and Plan (1) Severe sepsis Current Visit: Yes Status: Acute Assessment and Plan: Severe sepsis secondary to Noroviral gastroenteritis, possible unidentified superimposed secondary bacterial infection. Patient afebrile and much improved from prior day, HR, RR in normal range with systolic BP stabilizing >100. Labs improving with Lactic acid 0.8, troponin 0.16, Cr 0.98. Consider continuing Zosyn until blood cultures have resulted given initial sepsis but only norovirus identified. Will maintain central line in case additional blood draws or fluid resuscitation required. -Continue IV Zosyn pending blood cultures, discontinue PO vancomycin -Aggressive PO hydration -Monitor CBC, CMP for further response to PO intake and return to baseline (2) Infectious diarrhea in adult patient Current Visit: Yes Status: Acute Assessment and Plan: GI Panel positive for Norovirus. Patient works at correctional facility, admits possible sick contact, and relatively immunosuppressed given chronic prednisone. She endorses improvement with diarrhea as only single episode with minimal volume, no other abdominal pain. -Plan as above Sepsis (3) High anion gap metabolic acidosis Current Visit: Yes Status: Resolved Assessment and Plan: Gap closed with AG of 8, lactic acid of 0.8, bicarb 16, Cl 111. Consider hyperchloremic normal AG metabolic acidosis given her prior diarrhea. -Plan as above (4) Current chronic use of systemic steroids Current Visit: Yes Status: Acute Assessment and Plan: Patient on senior care prednisone taper 10 mg daily to treat dermatomyositis -Continue Solu-Cortef 100mg IV q8H; consider taper to allow transition to PO (5) ANDIE (acute kidney injury) Current Visit: Yes Status: Acute Assessment and Plan: ANDIE likely related to severe hypovolemia secondary to Noroviral gastroenteritis. Labs improving with Cr 0.98, BUN 19, eGFR 60. Given improving renal function and clinical picture will cancel Retroperitoneal U/S -Discontinue IVF -Aggressive PO fluid intake -Check CMP in am for further response to PO fluids (6) Gastroenteritis Current Visit: Yes Status: Acute Assessment and Plan: GI Panel positive for norovirus. Supportive care. -Adequate PO hydration (7) Dermatomyositis Current Visit: Yes Status: Chronic Assessment and Plan: Mild myalgia but no acute exacerbation. History of dermatomyositis, currently treated with 1 year taper of prednisone and plaquenil -Continue plaquenil -Stress dose steroids as above in Chronic Steroids (8) Hypomagnesemia Current Visit: Yes Status: Resolved Assessment and Plan: Followup Mg of 2.6 -Resolved post 2g IV Mg DVT Prophylaxis: Heparin 5k Units SQ q8H - Time Spent with Patient Total time spent is greater than 50% in coordination of care (as documented) at patient's floor/unit and/or counseling patient: Internal Medicine: Result - Labs CBC & Chem 7: 04/13/18 07:50 04/13/18 03:50 Labs: Short CBC 04/12/18 04/13/18 Range/Units 14:07 07:50 WBC 11.5 H 8.7 (4.3-11.1) K/mcL Hgb 17.7 H 11.6 D (11.5-15.4) g/dL Hct 54.5 H 35.4 (35.3-44.9) % Plt Count 346 254 (140-400) K/mcL Neutrophils # 9.3 H 7.6 (1.6-8.9) K/mcL BMP 04/12/18 04/13/18 04/13/18 14:07 00:20 03:50 Sodium 131 L 131 L 135 L Potassium 5.0 3.8 3.8 Chloride 97 L 114 H 111 H Carbon Dioxide 12 L 14 L 16 L BUN 28 H 24 H 19 Creatinine 2.68 H 1.29 H 0.98 Glucose 189 H 157 H 182 H Calcium 8.1 L 6.1 L 6.5 L Cardiac Enzymes 04/12/18 04/12/18 04/13/18 Range/Units 14:07 19:54 02:10 Troponin I 0.52 H* 0.26 H* 0.16 H* (< 0.04) ng/mL Liver Function 04/12/18 04/12/18 04/13/18 Range/Units 14:07 14:07 03:50 Total Bilirubin 0.5 Cancelled 0.3 (0.3-1.0) mg/dL Direct Bilirubin 0.1 Cancelled (0.0-0.2) mg/dL AST 24 Cancelled 16 (13-39) Units/L ALT 21 Cancelled 15 (7-52) Units/L Alkaline Phosphatase 38 Cancelled 28 L (34-104) Units/L Albumin 3.7 Cancelled 2.7 L (3.5-5.7) g/dL Urine 04/12/18 Range/Units 16:55 Urine Color Dark Yellow (Yellow) Urine Clarity Turbid A (Clear) Urine pH 5.0 (5.0-8.0) pH Units Ur Specific [place] 1.025 (1.010-1.025) Urine Protein 30 H (Neg-Trace) mg/dL Urine Glucose (UA) Normal (Normal) mg/dL - ABG Interpretation ABG results: PT/INR, D-dimer PT 12.6 Seconds (9.4-12.1) H 04/13/18 03:50 - Impressions Impressions Chest X-Ray 04/12/18 13:56 IMPRESSION: 1. No active pulmonary disease. D/ / Aurelio Walter MD / Aurelio Walter MD Interpreting Provider: Aurelio Walter MD Abdomen/Pelvis CT 04/12/18 15:30 IMPRESSION: 1. Patient status post gastric bypass with mild dilatation of multiple proximal and mid small bowel loops, though no definite transition point is identified. These findings may suggest a mild small bowel ileus or possibly a developing small bowel obstruction. Clinical correlation is advised. There is no evidence of pneumatosis, perforation, or free air. 2. Patient status post cholecystectomy. D/ / 04/12/2018 16:42:27 Bro Alvarado MD / [email or web address] Interpreting Provider: Bro Alvarado MD Chest X-Ray 04/12/18 21:07 IMPRESSION: No acute process. Right jugular central venous line in place terminating near the junction of the SVC and the right atrium D/ / Jose Albrecht MD / Jose Albrecht MD Interpreting Provider: Jose Albrecht MD Consult Discharge Plan - Plan Referrals: Kody Harris CNP [Primary Care Provider] - (Sent fax request to office on 04-13-18 @ [phone]) <Judith Subramanian - Last Filed: 04/14/18 07:36> Hospitalist Progress Note - Encounter Date of Encounter: 04/14/18 - Exam Vitals: Temp Pulse Resp BP Pulse Ox 98.0 F 90 14 132/80 96 04/14/18 03:48 04/14/18 03:48 04/14/18 03:48 04/14/18 03:48 04/14/18 03:48 - Assessment and Plan (1) Severe sepsis Current Visit: Yes Status: Acute (2) Gastroenteritis Current Visit: Yes Status: Acute (3) ANDIE (acute kidney injury) Current Visit: Yes Status: Acute (4) Infectious diarrhea in adult patient Current Visit: Yes Status: Acute (5) Dermatomyositis Current Visit: Yes Status: Chronic (6) High anion gap metabolic acidosis Current Visit: Yes Status: Resolved (7) Hypomagnesemia Current Visit: Yes Status: Resolved (8) Current chronic use of systemic steroids Current Visit: Yes Status: Acute - Time Spent with Patient Total time spent is greater than 50% in coordination of care (as documented) at patient's floor/unit and/or counseling patient: Internal Medicine: Result - Labs CBC & Chem 7: 04/13/18 07:50 04/14/18 03:40 Labs: Short CBC 04/13/18 Range/Units 07:50 WBC 8.7 (4.3-11.1) K/mcL Hgb 11.6 D (11.5-15.4) g/dL Hct 35.4 (35.3-44.9) % Plt Count 254 (140-400) K/mcL Neutrophils # 7.6 (1.6-8.9) K/mcL BMP 04/14/18 03:40 Sodium 137 Potassium 3.3 L Chloride 110 H Carbon Dioxide 22 L BUN 5 L Creatinine 0.42 L Glucose 216 H Calcium 7.0 L - ABG Interpretation ABG results: PT/INR, D-dimer PT 12.6 Seconds (9.4-12.1) H 04/13/18 03:50 - Impressions Impressions Abdomen/Pelvis CT 04/12/18 15:30 IMPRESSION: 1. Patient status post gastric bypass with mild dilatation of multiple proximal and mid small bowel loops, though no definite transition point is identified. These findings may suggest a mild small bowel ileus or possibly a developing small bowel obstruction. Clinical correlation is advised. There is no evidence of pneumatosis, perforation, or free air. 2. Patient status post cholecystectomy. D/ / 04/12/2018 16:42:27 Bro Alvarado MD / alfred Interpreting Provider: Bro Alvarado MD - Attending Attestation I examined this patient and my medical decision-making was reviewed with the Resident Physician and Medical Student. I agree with the documented findings, disposition and treatment plan as described except to the extent set forth below. Patient feels much better than yesterday. Objectively she appears in less distress, skin is warm and dry today, abdomen is soft, and non-tender. Labs show troponin trending down and renal function now within normal limits. VS: reviewed, Labs: reviewed as noted. A/P: severe sepsis - suspected source is GI as her primary complaints is n/v/d. She is + norovirus on stool panel, possibly the primary source of infection, cannot completely exclude bacterial causes. Should continue Zosyn until blood cultures negative for at least 48 hours.
[2018-04-13] MEDS ORDERED: Hydrocortisone Sodium Succ 100 MG/2 ML VIAL IVP SCH (20:00)
[2018-04-14] MEDS: Acetaminophen 325 MG TABLET PO PRN ×3 (01:15→12:36)
[2018-04-14 03:59] LABS: VBG Ionized Calcium 1.05 mmol/L (1.15-1.35)
[2018-04-14 04:27] LABS: BUN/Creatinine Ratio 12 (6-26); Blood Urea Nitrogen 5 mg/dL (6-20); Carbon Dioxide 22 mEq/L (23-29); Chloride 110 mEq/L (98-107); Glucose 216 mg/dL (70-105); Magnesium 2.2 mg/dL (1.6-2.6); Osmolality,Calculated 288 (280-300); Phosphorous 1.5 mg/dL (2.7-4.5); Potassium 3.3 mEq/L (3.5-5.1); Sodium 137 mEq/L (136-145); eGFR For Non-African Americans > 60 (> 60)
[2018-04-14] MEDS: *HR* Heparin 5,000 UNIT/ML VIAL SQ SCH (06:07)
[2018-04-14] MEDS ORDERED: Calcium Gluconate 2,000 MG in 0.9 % Sodium Chloride 100 ML IVPB ONE (08:34)
--- NOTE | 2018-04-14 08:38 | Discharge Summary ---
<Madison Bull N - Last Filed: 04/14/18 22:51> - NOTES TO OUTPATIENT PROVIDER Notes to Outpatient Provider: Mrs. Roberson was admitted on 04/12/18 for sepsis and hypovolemia secondary to an infectious diarrhea positive for Norovirus. EKG, CXR, and CTA Abdomen were without acute findings and UA was negative for in fection. Labs indicated ANDIE likely related to the hypovolemia and sepsis. She was treated with broad-spectrum antibiotics and vigorous IV hydration. The patient had a rapid recovery with treatment as vitals stabilized and the ANDIE resolved. Recommend continuation of 40 mg prednisone ith taper down to her usual daily dose of 10 mg over approximately 2 weeks, then continue 10mg daily dosefor dermatomyositis therapy until follow-up with rheumatology for any changes in maintenance dosing. Orders not resulted at time of discharge: Pending orders 04/12/18 15:10 Culture,Blood [BC] Stat 04/14/18 08:31 CBC [Complete Blood Count] [HEME] Stat Date of Encounter: 04/14/18 Time of Encounter: 08:38 - Discharge Diagnosis (1) Severe sepsis Priority: Primary Status: Acute (2) Gastroenteritis Priority: Secondary Status: Acute (3) ANDIE (acute kidney injury) Priority: Secondary Status: Acute (4) Infectious diarrhea in adult patient Priority: Secondary Status: Acute (5) Dermatomyositis Priority: Secondary Status: Chronic (6) High anion gap metabolic acidosis Priority: Secondary Status: Resolved (7) Hypomagnesemia Priority: Secondary Status: Resolved (8) Current chronic use of systemic steroids Priority: Secondary Status: Acute Hospital course: Ms. Roberson is a 53 year old female with a PMHx of HTN, hypothyroidism, post-deysi delta bypass, and dermatomyositis on 1 year taper of prednisone and Plaquenil. She presented to the ED on 04/12/18 with nausea, vomiting, and diarrhea that began 3 days prior with some general weakness. She denied chest pain, SOB, cough, or urinary symptoms. 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 Labs on presentation indicated metabolic acidosis with high anion gap of 22, elevated WBC of 11.5, lactic acid 5.3, troponin 0.52. EKG revealed sinus rhythm with no evidence of ischemic changes. CXR was without significant findings. CT of the abdomen showed mild dilatation of multiple proximal and mid small bowel loops but no definite transition point, pneumatosis, perforation, or free air. In the ED, she initially received 3L 0.9NS as well as Zosyn and IV Vancomycin given the concern for sepsis. Central line was placed RIJ due to difficulty obtaining peripheral IV access from patient's small veins. Patient was admitted with diagnosis of severe sepsis. Upon hospital admission, aggressive IV hydration ~4L 0.9NS and broad spectrum antibiotics were continued. The patient was also started on stress dose steroids of IV Solu-Cortef 100 mg IV q8H as a replacement for her prednisone taper. There was concern for ANDIE secondary to hypovolemia and sepsis given her initial Cr of 2.68. However the metabolic acidosis with increased anion gap resolved and follow-up labs improved with WBC 8.7, Lactic acid 0.8, troponin 0.16, BUN 19, Cr 0.98, AG of 8. GI Panel was positive for Norovirus while the UA was not significant for infection and nasopharyngeal swab was negative for flu. The patient continued to improve as Zosyn was maintained and PO fluids were increased. The ANDIE resolved as Cr decreased to 0.42 and GFR returned to >60. Her urine output remained adequately high given the consistent fluid intake. The patient was tapered off of IV Solu-Cortef to PO prednisone 40 mg daily, with prescription for further taper down to regular home dose of 10mg over approximately 2 weeks. She was instructed to follow up with her rfid manager regarding determination of appropriate maintenance dose of prednisone. Patient had no other complications during the hospitalization. On day of discharge, patient denied any fevers, chills, nausea, or vomiting. She endorses several episodes of diarrhea; however, she states that it no longer has a foul odor to it. She reported only mild abdominal cramping, and voiced no other complaints or concerns. Electrolytes were repleated as indicated by AM labs prior to discharge, and patient was instructed to follow up with her PCP in 3-5 days. Discharge discussed with: patient, nurse - Time Spent with Patient Total time spent providing and/or coordinating discharge services: - Discharge Medications Prescriptions: predniSONE [PredniSONE] 10 mg PO DAILY #45 tablet Home Medications: RX: Cholecalciferol (D-3) [Vitamin D] 5,000 unit PO DAILY 10/31/16 [History] RX: Gabapentin [Neurontin] 600 mg PO TID 10/31/16 [History] RX: Levothyroxine Sodium [Levoxyl] 75 mcg PO DAILY 10/31/16 [History] RX: Lisinopril [Zestril] 5 mg PO DAILY 10/31/16 [History] RX: Esomeprazole Magnesium [Nexium] 20 mg PO DAILY 04/12/18 [History] RX: Hydrocodone/Acetaminophen [Carmel 5-325 Tablet] 1 each PO Q6H PRN 04/12/18 [History] RX: Hydroxychloroquine [Plaquenuil] 200 mg PO BID 04/12/18 [History] RX: Albuterol Sulfate [Albuterol Inhaler] 2 puff IH QID PRN 04/13/18 [History] RX: Butalbit/Acetamin/Caff/Codeine [Lhwsho-Cwch-Naozqcyqmuu-Codein] 2 each PO QID PRN 04/13/18 [History] RX: Montelukast [Singulair] 10 mg PO HS 04/13/18 [History] RX: Multivit-Min/Iron/Folic Acid/K [Adults Multivitamin Tablet] 1 each PO DAILY 04/13/18 [History] RX: Norgestimate-Ethinyl Estradiol [Tri-Sprintec Tablet] 1 each PO DAILY 04/13/18 [History] RX: Potassium Chloride [K-Tab ER] 10 meq PO DAILY 04/13/18 [History] RX: metFORMIN [Glucophage] 500 mg PO BIDWM 04/13/18 [History] predniSONE [PredniSONE] 10 mg PO DAILY #45 tablet 04/14/18 [Rx] Allergies/Adverse Reactions: Allergy/AdvReac Type Severity Reaction Status Date / Time topiramate [From Topamax] Allergy Itching Verified 01/08/18 08:42 morphine AdvReac See Verified 06/18/17 11:06 Comments tramadol AdvReac Nausea Verified 06/18/17 11:06 Date of admission: 04/13/18 18:10 Primary care physician: Kody Harris CNP Discharging clinician: Madison Bull Anticipated date of discharge: 04/14/18 - Constitutional Vitals: Temp Pulse Resp BP Pulse Ox 98.3 F 85 18 133/78 96 04/14/18 08:10 04/14/18 08:10 04/14/18 08:10 04/14/18 08:10 04/14/18 08:10 Exam: Gen: Vitals noted. No acute distress. HENT: Atraumatic; oropharynx clear with moist mucous membranes Neck: Trachea midline; supple, no thyromegaly or lymphadenopathy Cardiac: RRR, no murmur, +S1/S2 Pulmonary: CTA bilaterally, no wheezes, rales or rhonchi, equal chest expansion Abdomen: soft, no tenderness palpation, no guarding. No masses or hepatosplenomegaly MSK: ROM intact, no joint swelling noted Extremities: no BLE edema, nontender calf, no cyanosis or clubbing Skin: Warm, dry, and intact Neuro: moves all extremities, no focal deficits. Psych: Appropriate mood and behavior. A&Ox3 - Patient Status Disposition: Home, Self-Care Condition: Fair Functional capacity at discharge: independent ambulation Overall status at discharge: patient is progressing back to baseline - Discharge Instructions Instructions: Prednisone (By mouth) Follow Up With: Kody Harris CNP [Primary Care Provider] - (Sent fax request to office on 04-13-18 @ [phone] Office is only open on Thu. . 5P to 8P Sat. 9A-12P Patient will have to call and make own appointment) Additional Instructions: Follow up with your PCP in 3-5 days. Continue taking prednisone as directed: 40mg daily x3 days, then 30mg daily x3 days, then 20mg daily x3 days, then 10mg daily. Continue taking 10mg dose after completion of taper until you follow up with rheumatology for maintenance dosing. Return to the emergency department if you develop fevers, chills, worsening abdominal pain/diarrhea, confusion, weakness or dizziness. Return to the ED if new complaints or concerns arise. <Gunner Londono - Last Filed: 04/15/18 07:42> Orders not resulted at time of discharge: Pending orders 04/12/18 15:10 Culture,Blood [BC] Stat Date of Encounter: 04/15/18 - Discharge Diagnosis (1) Severe sepsis Status: Acute (2) Gastroenteritis Status: Acute (3) ANDIE (acute kidney injury) Status: Acute (4) Infectious diarrhea in adult patient Status: Acute (5) Dermatomyositis Status: Chronic (6) High anion gap metabolic acidosis Status: Resolved (7) Hypomagnesemia Status: Resolved (8) Current chronic use of systemic steroids Status: Acute Hospital course: Ms. Roberson is a 53 year old female - Time Spent with Patient Total time spent providing and/or coordinating discharge services: Date of admission: 04/13/18 18:10 Primary care physician: Kody Harris CNP - Constitutional Vitals: Temp Pulse Resp BP Pulse Ox 98.9 F 98 18 128/82 96 04/14/18 11:44 04/14/18 11:44 04/14/18 11:44 04/14/18 11:44 04/14/18 11:44 - Attending Attestation I examined this patient and my medical decision-making was reviewed with the Resident Physician. I agree with the documented discharge as above. GEN: NAD CVS: RRR. S1, S2, No m/r/g RESP: CTAB ABD: Soft, NT, ND, +BS EXT: No edema. 2+ DP. No rashes NEURO: Nonfocal
[2018-04-14] MEDS ORDERED: predniSONE 20 MG TABLET PO SCH (09:00)
[2018-04-14] MEDS: Cholecalciferol (D-3) 1,000 UNIT TABLET PO SCH (09:20)
[2018-04-14] MEDS: Piperacillin/Tazobactam 3.375 GM in 0.9 % Sodium Chloride Mini Bag 100 ML IVPB SCH (09:21)
[2018-04-14 09:48] LABS: Basophils % 0.1 %; Eosinophils % 0.3 %; Hematocrit 37.6 % (35.3-44.9); Hemoglobin 12.6 g/dL (11.5-15.4); Immature Granulocytes % 0.2 % (0-4); Lymphocytes # 1.4 K/mcL (0.6-4.6); Lymphocytes % 14.9 %; Mean Corpuscular HGB Conc 33.5 g/dL (31.6-35.5); Mean Corpuscular Hemoglobin 28.2 pg (28.0-33.3); Mean Corpuscular Volume 84.1 fL (83.0-100.0); Mean Platelet Volume 10.5 fL (9.4-12.4); Monocytes % 10.6 %; Neutrophils # 6.8 K/mcL (1.6-8.9); Platelet Count 270 K/mcL (140-400); Red Blood Count 4.47 M/mcL (3.82-4.97); Segmented Neutrophils % 73.9 %
[2018-04-14 11:46] VITALS: BP 128/82
--- NOTE | 2018-04-14 21:54 | Electrocardiograph Report ---
[address] [place], [place] [address] Test Date: 2018-04-12 Pat Name: Diana Roberson Department: [id number] Room: 2N08 Gender: F Developmental Behavioral Physician: : 1965 Requested By: Marcelino Bateman Order Number: [id number] Reading MD: Sarah Frederick Measurements Intervals [place] Rate: 140 P: 92 [place]: 106 QRS: 13 QRSD: 74 T: 48 QT: 288 QTc: 440 Interpretive Statements Technically poor tracing - please repeat ECG Sinus tachycardia Low voltage, extremity leads Inferior ST-T changes, consider myocardial injury Electronically Signed On 04-14-2018 21:52:39 EST by Sarah Frederick
--- NOTE | 2018-04-14 21:59 | Electrocardiograph Report ---
[address] [address] Test Date: 2018-04-12 Pat Name: Diana Roberson Department: [id number] Room: 2N08 Gender: F Sole Painter: : 1965 Requested By: Russell Gomez Order Number: [id number] Reading MD: Sarah Frederick Measurements Intervals [place] Rate: 134 P: 64 [place]: 104 QRS: 31 QRSD: 76 T: 77 QT: 306 QTc: 457 Interpretive Statements Sinus tachycardia Consider right atrial enlargement Nonspecific ST-T abnormalities Electronically Signed On 04-14-2018 21:57:38 EST by Sarah Frederick
== END 2018-04-14 16:24 | disposition home or self-care (01) | DRG 872 ==
LOC: 2NNU 13:45 → EMEROOARM 13:45 → SUATTDRO 21:30 → 2NNU 22:32 → SUATTDRO 04-13 18:10
PROVIDERS: ADMIT Student in an Organized Health Care Education/Training Program; ATTEND Internal Medicine